=== PATIENT | male | born 1990 | race Caucasian/White ===

== ENCOUNTER 2021-02-28 15:07 | Emergency (ER) | payer OTHER, SELFPAY ==
--- NOTE | 2021-02-28 16:22 | EDPHYS ---
Physician Documentation [facility] Name: Oracio Holden Age: 30 yrs Sex: Male : 1990 Arrival Date: 02/28/2021 Time: 15:09 Bed Waiting Private MD: ED Physician Gurpreet Zee HPI: 02/28 16:19 This 30 yrs old Male presents to ER via Ambulatory with complaints of Eye jr8 Problem. 16:19 Onset: The symptoms/episode began/occurred acutely, 2 day(s) ago. Duration: the jr8 symptoms are continuous. Aggravated by nothing. Alleviated by nothing. Associated signs and symptoms: Pertinent positives: None. Patient does not utilize any form of vision correction. Severity of symptoms: At their worst the symptoms were mild in the emergency department the symptoms are unchanged. The patient has not experienced similar symptoms in the past. The patient has not recently seen a physician. Denies foreign body intrusion to the eye. Stated that he has had a couple days of mild pain that had increased along with erythema.. Historical: - Allergies: 16:02 No Known Allergies; jl7 - Home Meds: 16:02 None [Active]; jl7 - PMHx: 16:02 None; jl7 - PSHx: 16:02 None; jl7 - Immunization history:: Adult Immunizations not up to date, Client reports having NOT received the Covid vaccine. - Social history:: Smoking status: Reported history of juuling and/or vaping. ROS: 16:19 ENT: Negative for injury, pain, and discharge, Neck: Negative for injury, pain, and jr8 swelling, Cardiovascular: Negative for chest pain, palpitations, and edema, Respiratory: Negative for shortness of breath, cough, wheezing, and pleuritic chest pain, Abdomen/GI: Negative for abdominal pain, nausea, vomiting, diarrhea, and constipation, Back: Negative for injury and pain, MS/Extremity: Negative for injury and deformity, Skin: Negative for injury, rash, and discoloration, Neuro: Negative for headache, weakness, numbness, tingling, and seizure. 16:19 Eyes: Positive for pain, redness, tearing, of the left eye. Exam: 16:19 Visual Acuity: Visual acuity is within normal limits. jr8 16:19 Constitutional: This is a well developed, well nourished patient who is awake, alert, and in no acute distress. Head/Face: Normocephalic, atraumatic. ENT: Nares patent. No nasal discharge, no septal abnormalities noted. Tympanic membranes are normal and external auditory canals are clear. Oropharynx with no redness, swelling, or masses, exudates, or evidence of obstruction, uvula midline. Mucous membranes moist. Neck: Trachea midline, no thyromegaly or masses palpated, and no cervical lymphadenopathy. Supple, full range of motion without nuchal rigidity, or vertebral point tenderness. No Meningismus. Cardiovascular: Regular rate and rhythm with a normal S1 and S2. No gallops, murmurs, or rubs. Normal PMI, no JVD. No pulse deficits. Respiratory: Lungs have equal breath sounds bilaterally, clear to auscultation and percussion. No rales, rhonchi or wheezes noted. No increased work of breathing, no retractions or nasal flaring. Skin: Warm, dry with normal turgor. Normal color with no rashes, no lesions, and no evidence of cellulitis. MS/ Extremity: Pulses equal, no cyanosis. Neurovascular intact. Full, normal range of motion. Neuro: Awake and alert, GCS 15, oriented to person, place, time, and situation. Motor strength 5/5 in all extremities. Sensory grossly intact. 16:19 Eyes: Periorbital structures: appear normal, Pupils: equal, round, and reactive to jr8 light and accomodation, Extraocular movements: intact throughout, Conjunctiva: injected, in the left eye, tearing noted, in left eye, Corneas: are normal, Sclera: no appreciated abnormality, Anterior chamber: normal, Lids and lashes: appear normal, funduscopic exam reveals no obvious abnormalities, Examination of the other eye reveals no obvious gross abnormality. Vital Signs: 16:04 BP 138 / 69; Pulse 96; Resp 17; Temp 99; Pulse Ox 97% ; Weight 86.18 kg; Height 6 ft. 1 jl7 in. (185.42 cm); Pain 5/10; 16:04 Body Mass Index 25.07 (86.18 kg, 185.42 cm) jl7 MDM: 16:19 Data reviewed: vital signs, nurses notes, and as a result, I will discharge patient. jr8 Data interpreted: Pulse oximetry: on room air is 97 %. Interpretation: normal. Counseling: I had a detailed discussion with the patient and/or guardian regarding: the historical points, exam findings, and any diagnostic results supporting the discharge/admit diagnosis, the need for outpatient follow up, an opthalmologist, to return to the emergency department if symptoms worsen or persist or if there are any questions or concerns that arise at home. ED course: Discussed patient that we will treat with antibiotic eyedrops. In the next few days needs to see ophthalmology or optometry for further evaluation of his eye and to ensure that is resolving. If he were to get worse in between now and then to come back for reassessment to the emergency room. Patient good with plan at this time.. 16:21 Patient medically screened. jr8 Administered Medications: No medications were administered Disposition: 03/01 07:54 Co-signature as Attending Physician, Gurpreet Zee MD I agree with the assessment and enzo plan of care. Disposition Summary: 02/28/21 16:21 Discharge Ordered Location: Home jr Problem: new jr8 Symptoms: have improved jr8 Condition: Stable jr8 Diagnosis - Unspecified conjunctivitis jr8 Followup: jr8 - With: Letitia Saenz MD - When: 2 - 3 days - Reason: Recheck today's complaints, Continuance of care, Re-evaluation by your physician Discharge Instructions: - Discharge Summary Sheet jr8 - Bacterial Conjunctivitis, Adult jr8 Forms: - Medication Reconciliation Form jr8 - Thank You Letter jr8 - Antibiotic Education jr8 - Prescription Opioid Use jr8 Prescriptions: - Gentamicin 0.3 % Ophthalmic Drops - instill 2 drops by OPHTHALMIC route every 4 hours for 7 days; 1 bottle; jr8 Refills: 0, Product Selection Permitted Signatures: Gurpreet Zee MD MD cha Roszak, Josh, PA PA jr8 Kemal King, RN RN jl7
--- NOTE | 2021-02-28 16:22 | ER ---
Nurse's Notes [facility] Name: Oracio Holden Age: 30 yrs Sex: Male : 1990 Arrival Date: 02/28/2021 Time: 15:09 Bed Waiting Private MD: Diagnosis: Unspecified conjunctivitis Presentation: 02/28 16:01 Chief complaint: Patient states: Redness, discharge and swelling to left eye x 2 days. jl7 Coronavirus screen: At this time, the client does not indicate any symptoms associated with coronavirus-19. Ebola Screen: No symptoms or risks identified at this time. Initial Sepsis Screen: Does the patient meet any 2 criteria? No. Patient's initial sepsis screen is negative. Does the patient have a suspected source of infection? No. Patient's initial sepsis screen is negative. Risk Assessment: Do you want to hurt yourself or someone else? Patient reports no desire to harm self or others. Onset of symptoms was February 26, 2021. Care prior to arrival: None. 16:01 Method Of Arrival: Ambulatory [facility] 16:01 Acuity: ISABEL 4 jl7 Triage Assessment: 16:02 General: Appears in no apparent distress. uncomfortable, Behavior is calm, cooperative, jl7 appropriate for age. Pain: Complains of pain in left eye Pain currently is 4 out of 10 on a pain scale. EENT: Eyes are tearing on left eye Sclera/Cornea are reddened in left eye. Neuro: Level of Consciousness is awake, alert, obeys commands, Oriented to person, place, time, situation. Cardiovascular: Patient's skin is warm and dry. Respiratory: Airway is patent Respiratory effort is even, unlabored, Respiratory pattern is regular, symmetrical. Derm: Skin is pink, warm \T\ dry. Historical: - Allergies: 16:02 No Known Allergies; jl7 - Home Meds: 16:02 None [Active]; jl7 - PMHx: 16:02 None; jl7 - PSHx: 16:02 None; jl7 - Immunization history:: Adult Immunizations not up to date, Client reports having NOT received the Covid vaccine. - Social history:: Smoking status: Reported history of juuling and/or vaping. Screenin:15 Abuse screen: Denies threats or abuse. Denies injuries from another. Nutritional jl7 screening: No deficits noted. Tuberculosis screening: No symptoms or risk factors identified. Fall Risk None identified. Assessment: 16:15 General: JAMILA Todd in triage assessing pt. jl7 Vital Signs: 16:04 BP 138 / 69; Pulse 96; Resp 17; Temp 99; Pulse Ox 97% ; Weight 86.18 kg; Height 6 ft. 1 jl7 in. (185.42 cm); Pain 5/10; 16:04 Body Mass Index 25.07 (86.18 kg, 185.42 cm) jl7 ED Course: 15:09 Patient arrived in ED. as 16:02 Triage completed. jl7 16:04 Arm band placed on right wrist. jl7 16:15 Patient has correct armband on for positive identification. jl7 16:19 Perez Bojorquez PA is PHCP. jr8 16:19 Gurpreet Zee MD is Attending Physician. jr8 16:21 Letitia Saenz MD is Referral Physician. jr8 17:05 No provider procedures requiring assistance completed. Patient did not have IV access jl7 during this emergency room visit. Administered Medications: No medications were administered Outcome: 16:21 Discharge ordered by . jr8 17:05 Discharged to home ambulatory. jl7 17:05 Condition: stable 17:05 Discharge instructions given to patient, Instructed on discharge instructions, follow up and referral plans. medication usage, Demonstrated understanding of instructions, follow-up care, medications, Prescriptions given X 1. 17:05 Patient left the ED. jl7 Signatures: Rachel Simons Josh, PA PA jr8 Kemal King RN RN jl7
[2021-02-28 17:10] VITALS: BP 138/69; TEMP 99; O2SAT 97
== END 2021-02-28 17:05 | disposition home or self-care (01) ==
LOC: ER 15:07
DX: H10.9 Unspecified conjunctivitis (principal)
CPT/HCPCS: 99282

== ENCOUNTER 2021-03-05 17:06 | Emergency (ER) | payer SELFPAY ==
[2021-03-05] MEDS ORDERED: FLUORESCEIN SODIUM 1 MG/WRAP ONE (17:44)
[2021-03-05] MEDS ORDERED: TETRACAINE HCL 0.5% 4ML OPTH ONE (17:44)
--- NOTE | 2021-03-05 18:19 | ER ---
Nurse's Notes [facility] Name: Oracio Holden Age: 30 yrs Sex: Male : 1990 Arrival Date: 03/05/2021 Time: 17:07 Bed 4 Private MD: Diagnosis: Unspecified conjunctivitis Presentation: 03/05 17:21 Chief complaint: Patient states: Feels like something is in my eye, redness, tearing jl7 and swelling to left eye x 1.5 weeks. Coronavirus screen: Vaccine status: Patient reports being unvaccinated. Ebola Screen: No symptoms or risks identified at this time. Initial Sepsis Screen: Does the patient meet any 2 criteria? No. Patient's initial sepsis screen is negative. Does the patient have a suspected source of infection? No. Patient's initial sepsis screen is negative. Risk Assessment: Do you want to hurt yourself or someone else? Patient reports no desire to harm self or others. Onset of symptoms was February 21, 2021. Care prior to arrival: None. 17:21 Method Of Arrival: Ambulatory 7 17:21 Acuity: ISABEL 4 jl7 Triage Assessment: 17:23 General: Appears in no apparent distress. uncomfortable, Behavior is calm, cooperative, jl7 appropriate for age. Pain: Complains of pain in left eye Pain currently is 7 out of 10 on a pain scale. EENT: Eyes are tearing on left eye Sclera/Cornea are reddened in left eye. Neuro: Level of Consciousness is awake, alert, obeys commands, Oriented to person, place, time, situation. Cardiovascular: Patient's skin is warm and dry. Respiratory: Airway is patent Respiratory effort is even, unlabored, Respiratory pattern is regular, symmetrical. Derm: Skin is pink, warm \T\ dry. Historical: - Allergies: 17:23 No Known Allergies; jl7 - Home Meds: 17:23 None [Active]; jl7 - PMHx: 17:23 None; jl7 - PSHx: 17:23 None; jl7 - Immunization history:: Adult Immunizations not up to date. - Social history:: Smoking status: Reported history of juuling and/or vaping. Screenin:25 Abuse screen: Denies threats or abuse. Denies injuries from another. Nutritional jl7 screening: No deficits noted. Tuberculosis screening: No symptoms or risk factors identified. Fall Risk None identified. Assessment: 17:30 General: See triage assessment. jl7 Vital Signs: 17:21 BP 139 / 79; Pulse 99; Resp 17; Temp 98.7; Pulse Ox 99% on R/A; Weight 86.18 kg (R); jl7 Height 6 ft. 1 in. (185.42 cm); Pain 7/10; 17:21 Body Mass Index 25.07 (86.18 kg, 185.42 cm) jl7 Visual Acuity: 17:35 Left Eye Visual acuity 20/30, ; Right Eye Visual acuity 20/20, ; Both Eyes Visual em1 acuity 20/20; Without Lenses; ED Course: 17:07 Patient arrived in ED. ds1 17:14 Diana Rosa FNP-C is [facility]. kb 17:14 Gino Guerrero MD is Attending Physician. kb 17:21 Kemal King RN is Primary Nurse. jl7 17:23 Triage completed. jl7 17:23 Arm band placed on right wrist. jl7 17:25 Patient has correct armband on for positive identification. Bed in low position. Call [facility] light in reach. 17:55 Assist provider with eye exam of left eye. using fluorescein stain, Performed by [email or web address] Diana TRINH Patient tolerated well. 18:10 Eye irrigation of left eye with 500 ml normal saline, Patient tolerated well. jl7 18:28 Patient did not have IV access during this emergency room visit. jl7 Administered Medications: 17:55 Drug: Tetracaine Drops 0.5 % 1 drops Route: Ophthalmic; Site: left eye; jl7 18:10 Follow up: Response: No adverse reaction jl7 Outcome: 18:19 Discharge ordered by . kb 18:28 Discharged to home ambulatory. jl7 18:28 Condition: stable 18:28 Discharge instructions given to patient, Instructed on discharge instructions, follow up and referral plans. Demonstrated understanding of instructions, follow-up care. 18:28 Patient left the ED. jl7 Signatures: Diana Rosa FNP-C FAMILY [employer] LEGAL ASSISTANT-Jeanine Guardado ds1 Brayan Simons em1 Kemal King, TIMBO RN [email or web address]
--- NOTE | 2021-03-05 18:19 | EDPHYS ---
Physician Documentation [facility] Name: Oracio Holden Age: 30 yrs Sex: Male : 1990 Arrival Date: 03/05/2021 Time: 17:07 Bed 4 Private MD: ED Physician Gino Guerrero HPI: 03/05 18:46 This 30 yrs old Male presents to ER via Ambulatory with complaints of Redness kb of Eye. 18:46 The patient is experiencing pain, redness, The patient sustained None. to the left eye, kb caused by an unknown mechanism. Onset: The symptoms/episode began/occurred 1.5 week(s) ago. Duration: the symptoms are continuous. Aggravated by light, Alleviated by nothing. Associated signs and symptoms: Pertinent positives: None. Patient does not utilize any form of vision correction. Severity of symptoms: At their worst the symptoms were moderate in the emergency department the symptoms are unchanged. The patient has not experienced similar symptoms in the past. The patient has not recently seen a physician. Pt reports redness to left eye that started 1.5 weeks ago. States he was diagnosed with conjunctivitis and given antibiotics drops. States he feels like something is in his eye now so he came back to make sure nothing was there. States the only thing that relieves the eye redness and irritation is benadryl. . Historical: - Allergies: 17:23 No Known Allergies; jl7 - Home Meds: 17:23 None [Active]; jl7 - PMHx: 17:23 None; jl7 - PSHx: 17:23 None; jl7 - Immunization history:: Adult Immunizations not up to date. - Social history:: Smoking status: Reported history of juuling and/or vaping. ROS: 18:45 Constitutional: Negative for fever, chills, and weight loss. kb 18:45 Eyes: Positive for pain, redness, swelling. 18:45 All other systems are negative. Exam: 18:45 Constitutional: This is a well developed, well nourished patient who is awake, alert, kb and in no acute distress. Head/Face: Normocephalic, atraumatic. ENT: Moist Mucous membranes Respiratory: Respirations even and unlabored. No increased work of breathing, no retractions or nasal flaring. Skin: Warm, dry with normal turgor. Normal color. MS/ Extremity: Pulses equal, no cyanosis. Neurovascular intact. Full, normal range of motion. Neuro: Awake and alert, GCS 15, oriented to person, place, time, and situation. Moves all extremities. Normal gait. Psych: Awake, alert, with orientation to person, place and time. Behavior, mood, and affect are within normal limits. 18:45 Eyes: Periorbital structures: swelling, that is mild, on the left upper eyelid and left lower eyelid, Pupils: equal, round, and reactive to light and accomodation, Extraocular movements: intact throughout, Conjunctiva: injected, in the left eye, Corneas: are normal, no evidence of abrasion, no foreign body, a fluorescein strip employed to appreciate the findings. Vital Signs: 17:21 BP 139 / 79; Pulse 99; Resp 17; Temp 98.7; Pulse Ox 99% on R/A; Weight 86.18 kg (R); jl7 Height 6 ft. 1 in. (185.42 cm); Pain 7/10; 17:21 Body Mass Index 25.07 (86.18 kg, 185.42 cm) jl7 Visual Acuity: 17:35 Left Eye Visual acuity 20/30, ; Right Eye Visual acuity 20/20, ; Both Eyes Visual em1 acuity 20/20; Without Lenses; MDM: 17:14 Patient medically screened. kb 18:44 Data reviewed: vital signs, nurses notes. Data interpreted: Pulse oximetry: on room air kb is 99 %. Interpretation: normal. Counseling: I had a detailed discussion with the patient and/or guardian regarding: the historical points, exam findings, and any diagnostic results supporting the discharge/admit diagnosis, the need for outpatient follow up, a family practitioner, to return to the emergency department if symptoms worsen or persist or if there are any questions or concerns that arise at home. 03/05 17:24 Order name: Eye Tray; Complete Time: 17:26 kb 03/05 17:24 Order name: Fluoresene Opth strip; Complete Time: 17:26 kb 03/05 17:24 Order name: Visual Acuity; Complete Time: 17:35 kb Administered Medications: 17:55 Drug: Tetracaine Drops 0.5 % 1 drops Route: Ophthalmic; Site: left eye; [facility] 18:10 Follow up: Response: No adverse reaction [facility] Disposition: 03/06 08:56 Co-signature as Attending Physician, Gino Guerrero MD I agree with the assessment and kdr plan of care. Disposition Summary: 03/05/21 18:19 Discharge Ordered Location: Home kb Condition: Stable kb Diagnosis - Unspecified conjunctivitis kb Followup: kb - With: Emergency Department - When: As needed - Reason: Worsening of condition Followup: kb - With: Private Physician - When: 2 - 3 days - Reason: Recheck today's complaints, Continuance of care, Re-evaluation by your physician Discharge Instructions: - Discharge Summary Sheet kb - Allergic Conjunctivitis, Adult, [id number] kb Forms: - Medication Reconciliation Form kb - Thank You Letter kb - Antibiotic Education kb - Prescription Opioid Use kb Signatures: Diana Rosa, SERVICING REP-C SERVICING REP-Gino Rosen MD MD [facility] Kemal King, RN RN jl7
[2021-03-05 18:40] VITALS: BP 139/79; TEMP 98.7; O2SAT 99
== END 2021-03-05 18:28 | disposition home or self-care (01) ==
LOC: ER 17:06
DX: H10.9 Unspecified conjunctivitis (principal)
CPT/HCPCS: 99284